=== PATIENT | female | born 1990 | race Caucasian/White ===

== ENCOUNTER 2017-07-27 18:06 | Emergency (ER) | payer BC ==
[2017-07-27] MEDS: NS 0.9% 1000 ML* 2,000 ML IV ONE ×2 (19:19→19:21)
[2017-07-27 19:32] LABS: ABS Basophils 0 10^3/ul (0-0.2); ABS Eosinophils 0 10^3/ul (0-0.6); ABS Lymphocytes 1.2 10^3/ul (1.0-4.8); ABS Monocytes 0.5 10^3/ul (0-0.8); ABS Neutrophils 7.2 10^3/ul (1.5-7.7); ABS Nucleated RBC 0 10^3/ul; Eosinophil % 0 % (0-6); Hematocrit 35 % (35-47); Hemoglobin 11.8 g/dl (12.0-16.0); Lymphocyte % 13.4 % (25-47); Mean Corpuscular HGB Conc 34 g/dl (31-36); Mean Corpuscular Hemoglobin 30 pg (27-31); Mean Corpuscular Volume 87 fL (80-97); Mean Platelet Volume 9.2 um3 (7.4-10.4); Nucleated Red Blood Cells % 0; Platelet Count 179 10^3/ul (150-450); Red Blood Count 3.98 10^6/ul (4.0-5.4); Red Cell Distribution Width 14 % (10.5-15)
[2017-07-27 19:50] LABS: EGFR Non-African American 176.1 (>60)
[2017-07-27 20:03] LABS: Urine Appearance Clear; Urine Blood 1+ (Negative); Urine Color Straw; Urine Ketones Negative (Negative); Urine Protein Negative (Negative); Urine Specific Gravity 1.004 (1.010-1.030); Urine Urobilinogen Negative (Negative)
[2017-07-27] MEDS ORDERED: Magnesium Oxide TAB* 400 MG PO ONE (20:56)
[2017-07-27] MEDS ORDERED: Potassium Chlor TAB* 20 MEQ TAB.ER PO ONE (20:56)
[2017-07-27 21:44] VITALS: BP 108/79
--- NOTE | 2017-07-29 21:27 | ED ---
Michael Chávez Angela, scribed for Terrance Ortez MD on 07/27/17 at 1827 . GI/ HPI - HPI Summary HPI Summary: This pt is a 27 y/o female, currently 22 weeks , presenting to [facility] c/o nausea, vomiting, and diarrhea for the past few days. Pt additionally reports abdominal cramping. She is unsure if she had blood in her stool. Pt notes she is unable to keep anything down and feels dehydrated. Denies vaginal bleeding, vaginal discharge, fever. Pt states she is able to feel movements. - History of Current Complaint Chief Complaint: EDGeneral Stated Complaint: VOMITING/DIARRHEA Hx Obtained From: Patient Hx Last Menstrual Period: may 07 Onset/Duration: Started Days Ago, Still Present Timing: Lasting Days Severity: Moderate Pain Intensity: 3 Location of Pain: Diffuse Associated Signs and Symptoms: Positive: Nausea, Vomiting, Diarrhea, Abdominal Pain. Negative: Fever Additional Signs & Symptoms: Positive: - 2, Para - 1. Negative: Vaginal Bleeding, Vaginal Discharge Aggravating Factor(s): Nothing Alleviating Factor(s): Nothing - Allergy/Home Medications Allergies/Adverse Reactions: Allergies Allergy/AdvReac Type Severity Reaction Status Date / Time amoxicillin Allergy Hives Verified 07/27/17 18:16 ampicillin Allergy Hives Verified 07/27/17 18:16 lactose Allergy Diarrhea Verified 07/27/17 18:16 Sulfa (Sulfonamide Allergy Hives Verified 07/27/17 18:16 Antibiotics) Home Medications: Home Medications Vitamin TAB* 1 tab PO DAILY 07/27/17 [History Confirmed 07/27/17] PMH/Surg Hx/FS Hx/Imm Hx Endocrine/Hematology History: Reports: Hx Thyroid Disease - Hashimotos's Denies: Hx Diabetes Cardiovascular History: Denies: Hx Hypercholesterolemia, Hx Hypertension, Hx Pacemaker/ICD, Hx Peripheral Vascular Disease GI History: Reports: Hx Irritable Bowel, Other GI Disorders - LACTOSE INTOLERANT History: Reports: Other Problems/Disorders - intersitial cystitis Musculoskeletal History: Denies: Hx Arthritis, Hx Rheumatoid Arthritis, Hx Osteoporosis Sensory History: Denies: Hx Cataracts, Hx Contacts or Glasses, Hx Glaucoma Opthamlomology History: Denies: Hx Cataracts, Hx Contacts or Glasses, Hx Glaucoma Neurological History: Denies: Hx Headaches, Hx Seizures, Hx Transient Ischemic Attacks (TIA) Psychiatric History: Reports: Hx Anxiety, Hx Depression Denies: Hx Panic Disorder - Surgical History Surgery Procedure, Year, and Place: tubes in ears. adenoids removal. bladder expansion. laproscopy Hx Anesthesia Reactions: No Infectious Disease History: No Infectious Disease History: Reports: Hx Shingles Denies: Hx Clostridium Difficile, Hx Hepatitis, Hx Human Immunodeficiency Virus (HIV), Hx of Known/Suspected MRSA, Hx Tuberculosis, Hx Known/Suspected VRE , Hx Known/Suspected VRSA, History Other Infectious Disease, Traveled Outside the [place] in Last 30 Days - Family History Known Family History: Positive: Respiratory Disease - Father: asthma Family History: Mother: MS, thyroid disease. - Social History Alcohol Use: None Substance Use Type: Reports: None Smoking Status (MU): Never Smoked Tobacco Review of Systems Negative: Fever Eyes: Negative ENT: Negative Positive: Abdominal Pain, Vomiting, Diarrhea, Nausea Negative: discharge, other - vaginal bleeding Musculoskeletal: Negative Skin: Negative Neurological: Negative All Other Systems Reviewed And Are Negative: Yes Physical Exam - Summary Physical Exam Summary: VITAL SIGNS: Reviewed. GENERAL: Patient is a well-developed and nourished female who is lying comfortable in the stretcher. Patient is not in any acute respiratory distress. HEAD AND FACE: No signs of trauma. No ecchymosis, hematomas or skull depressions. No sinus tenderness. EYES: PERRLA, EOMI x 2, No injected conjunctiva, no nystagmus. EARS: Hearing grossly intact. Ear canals and tympanic membranes are within normal limits. MOUTH: Oropharynx within normal limits. NECK: Supple, trachea is midline, no adenopathy, no JVD, no carotid bruit, no c- spine tenderness, neck with full ROM. CHEST: Symmetric, no tenderness at palpation LUNGS: Clear to auscultation bilaterally. No wheezing or crackles. CVS: Regular rate and rhythm, S1 and S2 present, no murmurs or gallops appreciated. ABDOMEN: Soft, non-tender. No signs of distention. No rebound no guarding, and no masses palpated. Bowel sounds are normal. EXTREMITIES: FROM in all major joints, no edema, no cyanosis or clubbing. NEURO: Alert and oriented x 3. No acute neurological deficits. Speech is normal and follows commands. SKIN: Dry and warm Triage Information Reviewed: Yes Vital Signs On Initial Exam: Initial Vitals Temp Pulse Resp BP Pulse Ox 98 F 100 16 96/76 99 07/27/17 18:13 07/27/17 18:13 07/27/17 18:13 07/27/17 18:13 07/27/17 18:13 Vital Signs Reviewed: Yes Diagnostics - Vital Signs Vital Signs Temp Pulse Resp BP Pulse Ox 07/27/17 18:13 98 F 100 16 96/76 99 - Laboratory Lab Results: Lab Results 07/27/17 07/27/17 07/27/17 Range/Units 19:23 19:23 19:51 WBC 9.0 (3.5-10.8) 10^3/ul RBC 3.98 L (4.0-5.4) 10^6/ul Hgb 11.8 L (12.0-16.0) g/dl Hct 35 (35-47) % MCV 87 (80-97) fL MCH 30 (27-31) pg MCHC 34 (31-36) g/dl RDW 14 (10.5-15) % Plt Count 179 (150-450) 10^3/ul MPV 9.2 (7.4-10.4) um3 Neut % (Auto) 80.0 (38-83) % Lymph % (Auto) 13.4 L (25-47) % Slope % (Auto) 6.1 (0-7) % Eos % (Auto) 0 (0-6) % Baso % (Auto) 0.5 (0-2) % Absolute Neuts (auto) 7.2 (1.5-7.7) 10^3/ul Absolute Lymphs (auto) 1.2 (1.0-4.8) 10^3/ul Absolute Monos (auto) 0.5 (0-0.8) 10^3/ul Absolute Eos (auto) 0 (0-0.6) 10^3/ul Absolute Basos (auto) 0 (0-0.2) 10^3/ul Absolute Nucleated RBC 0 10^3/ul Nucleated RBC % 0 Sodium 134 L (139-145) mmol/L Potassium 3.1 L (3.5-5.0) mmol/L Chloride 104 (101-111) mmol/L Carbon Dioxide 22 (22-32) mmol/L Anion Gap 8 (2-11) mmol/L BUN 2 L (6-24) mg/dL Creatinine 0.43 L (0.51-0.95) mg/dL Est GFR ( Amer) 226.5 (>60) Est GFR (Non-Af Amer) 176.1 (>60) BUN/Creatinine Ratio 4.7 L (8-20) Glucose 87 (70-100) mg/dL Calcium 8.3 L (8.6-10.3) mg/dL Magnesium 1.8 L (1.9-2.7) mg/dL Total Bilirubin 0.30 (0.2-1.0) mg/dL AST 14 (13-39) U/L ALT 9 (7-52) U/L Alkaline Phosphatase 80 (34-104) U/L C-Reactive Protein 40.17 H (< 5.00) mg/L Total Protein 6.7 (6.4-8.9) g/dL Albumin 3.3 (3.2-5.2) g/dL Globulin 3.4 (2-4) g/dL Albumin/Globulin Ratio 1.0 (1-3) Lipase 10 L (11.0-82.0) U/L Urine Color Straw Urine Appearance Clear Urine pH 6.0 (5-9) Ur Specific [place] 1.004 L (1.010-1.030) Urine Protein Negative (Negative) Urine Ketones Negative (Negative) Urine Blood 1+ A (Negative) Urine Nitrate Negative (Negative) Urine Bilirubin Negative (Negative) Urine Urobilinogen Negative (Negative) Ur Leukocyte Esterase Negative (Negative) Urine WBC (Auto) Trace(0-5/hpf) (Absent) Urine RBC (Auto) 1+(3-5/hpf) A (Absent) Ur Squamous Epith Cells Present A (Absent) Urine Bacteria 3+ A (Absent) Urine Glucose Negative (Negative) Result Diagrams: 07/27/17 19:23 07/27/17 19:23 Lab Statement: Any lab studies that have been ordered have been reviewed, and results considered in the medical decision making process. Re-Evaluation - Re-Evaluation First Eval Re-Evaluation Time: 21:05 Comment: I reviewed the lab results with the pt. She will be discharged home. GIGU Course/Dx - Course Assessment/Plan: This patient is a 27-year-old female who is 22 weeks presents to the emergency room with a chief complaint of having diarrhea. The patient reports that she is being having diarrhea for the last 5 days, she reports that his of watery diarrhea with no blood or mucus. She declines any vaginal discharge or bleeding. Blood test results without any significant abnormality except for potassium level at 3.1 and magnesium level of 1.8. In the ED course the patient was hydrated with IV fluids approximately 2 L of NS, she was given potassium and magnesium by mouth. Urinalysis negative for UTI. He seems to be contaminated. Therefore we will send for urine cultures. Patient is feeling better. Patient has no further episodes of diarrhea. Therefore unable to obtain a stool culture. I discussed all the findings and test results with the patient. Patient was instructed to return to the emergency room immediately if any of the symptoms return or worsens. Plan of care was discussed with the patient and understands and agrees. All questions were answered at patient satisfaction. There were no further complaints or concerns. Lung exam before discharge: CTA B/L. Good air exchange. No wheezing or crackles heard. CVS: S1 and S2 present. No murmurs appreciated. Patient is alert and oriented x 3. Patient is hemodynamically stable. Patient will be discharged home with follow up PCP in the next 2-3 days - Diagnoses Provider Diagnoses: Diarrhea Discharge - Sign-Out/Discharge Documenting (check all that apply): Discharge/Admit/Transfer - Discharge - Discharge Plan Condition: Stable Disposition: HOME Patient Education Materials: Acute Diarrhea (ED) Referrals: Michaela Huynh MD [Primary Care Provider] - Additional Instructions: Please follow up with your OBGyn and primary care provider. RETURN TO THE ED FOR ANY NEW OR WORSENING SYMPTOMS. The documentation as recorded by the Michael roth Angela accurately reflects the service I personally performed and the decisions made by me, Terrance Ortez MD.
== END 2017-07-27 21:41 | disposition home or self-care (01) ==
LOC: ED 18:06
DX: O26.892 Other specified pregnancy related conditions, second trimester (principal); R19.7 Diarrhea, unspecified; Z3A.22 22 weeks gestation of pregnancy; Z88.3 Allergy status to other anti-infective agents; Z88.2 Allergy status to sulfonamides
CPT/HCPCS: 36415; 80053; 81003; 81015; 83690; 83735; 85025; 86140; 87086; 96360; 96361; 99284; A9270-GY

== ENCOUNTER 2017-12-07 11:03 | Inpatient (IN) | payer BC ==
[2017-12-07 12:29] LABS: Hematocrit 35 % (35-47); Hemoglobin 11.4 g/dl (12.0-16.0); Mean Corpuscular HGB Conc 33 g/dl (31-36); Mean Corpuscular Hemoglobin 27 pg (27-31); Mean Corpuscular Volume 81 fL (80-97); Mean Platelet Volume 9.6 um3 (7.4-10.4); Platelet Count 193 10^3/ul (150-450); Red Blood Count 4.28 10^6/ul (4.00-5.40); Red Cell Distribution Width 15 % (10.5-15); White Blood Count 9.3 10^3/ul (3.5-10.8)
--- NOTE | 2017-12-07 12:32 | HP ---
General Information - Reason for Visit at 40 6/7 weeks EGA, postdates. - General Information Maternal Age: 27 Grav: 2 Para: 1 SAB: 0 IEA: 0 Estimated Due Date: 12/01/17 Determined By: Early Ultrasound Gestational Age in Weeks/Days: 40 6/7 Maternal Blood Type and Rh: A Positive - Results this Serology/RPR Result: Non-Reactive Rubella Result: Immune HBsAg Result: Negative HIV Result: Negative GBS Culture Result: Negative Past Medical History Delivery History: See Records Pertinent Past Medical History: See Records Past Medical History Comment: Interstitial cystitis Fibromyalgia Preethi's thyroiditis Depression/Anxiety Endometriosis Pertinent Past Surgical History: See Records Past Surgical History Comment: 2012 Diagnostic laparoscopy 2011 bladder distension Pertinent Family History: See Records - Thyroid disease, High blood pressure, Diabetes. - Antepartal Records Antepartal Records: Reviewed, Uncomplicated Review of Systems Constitutional: Comfortable CV Complaint: No Respiratory: Shortness of Breath: No Gastrointestinal: No Nausea/Vomiting, Normal Bowel Movement Genitourinary: No Dysuria, No Bleeding, No Leaking Fluid Musculoskeletal: No Complaint, No Epigastric Pain Neurological: No Headache, No Visual Changes Movement: Normal Exam Allergies/Adverse Reactions: Allergies amoxicillin Allergy (Verified 07/27/17 18:16) Hives ampicillin Allergy (Verified 07/27/17 18:16) Hives lactose Allergy (Verified 07/27/17 18:16) Diarrhea Sulfa (Sulfonamide Antibiotics) Allergy (Verified 07/27/17 18:16) Hives Temp 97.7 BP 106/69 Pulse 90-100's RR 18 POx 87% RA - Measurements Height: 5 ft 2 in Weight: 189 lb Weight in lbs: [phone] Body Mass Index (BMI): 34.5 Pre- Weight: 135 lb Weight Gained This : 54 lbs and 0 ozs - Exam Breast: Breast Exam Deferred CVA: No CVA Tenderness Extremities: No Edema Heart: Normal Rhythm/Heart Sounds HEENT: No Significant Findings Lungs: Clear Bilaterally Rectal: Rectal Exam Deferred Reflexes: DTR 2+ Thyroid: No Thyromegaly - Abdominal Exam Abdomen Exam: Non-Tender, Fundal Height Consistent with Dates - Ultrasound/Biophysical Profile Ultrasound Status: Not Done Biophysical Profile: Normal Reactive NST Targeted Exam Findings See L&D Outpatient Visit Provider Note for Findings: N/A Cervical Exam: 3cm Effacement: 80% Station: -1 Presenting Part: Vertex Membrane Status: Intact EFM Findings - External Monitor Findings Baseline Heart Rate: 140 External Monitor Findings: Accelerations Present Contractions: Irregular, Mild Assessment/Plan - Assessment at 40 6/7 weeks with irregular contractions. - Obstetrical Risk Factors Obstetrical Risk Factors: Post-Dates - Plan Plan: Induction, IV Hydration - Date/Time of Admission Date of Admission: 12/07/17 Time of Admission: 12:30
[2017-12-07] MEDS ORDERED: Oxytocin in LR* 20 UNITS/1,000 ML BAG IVPB SCH (13:00)
[2017-12-07] MEDS ORDERED: OBEPIDURAL* 250 ML EPIDURAL ONE (14:38)
[2017-12-07] MEDS ORDERED: fentaNYL* 50 MCG/ML 2 ML VIAL (100 MCG VIAL) ONE (14:38)
[2017-12-07] MEDS ORDERED: Lidocaine 2% EPI 1:200000 MPF*10-20 ML VIAL ONE (15:17)
[2017-12-07] MEDS ORDERED: Famotidine TAB* 20 MG PO PRN (15:34)
[2017-12-07] MEDS ORDERED: Sodium Citrate/Citric Acid* 15 ML UDC PO PRN (15:34)
[2017-12-07] MEDS ORDERED: Phenylephrine IV* 40 MCG/ML 10 ML SYRINGE IV PUSH PRN ×2 (15:34)
[2017-12-07] MEDS ORDERED: OBEPIDURAL* 250 ML EPIDURAL SCH (16:00)
[2017-12-07] MEDS ORDERED: Ropivacaine (OR use only) 2 MG/ML 10 ML ONE (20:04)
[2017-12-07] MEDS ORDERED: Glycerin ADULT SUPP PR PRN (20:34)
[2017-12-07] MEDS ORDERED: Witch Hazel PAD* JAR TOPICAL PRN (20:34)
[2017-12-07] MEDS ORDERED: Dibucaine 1% 28.35 GM TUBE PR PRN (20:34)
--- NOTE | 2017-12-07 20:43 | PROCNOTE ---
[facility]: Delivery Note - Nursery Level of Nursery: Regular/Bedside - Perineum Perineal Injury: Perineal Laceration, 2nd Degree Perineal Repair: By Delivering Practioner - by Dr. George Vela, local anesthetic 5cc 1% lidocaine used. Repaired with 3- polysorb suture. - Events Delivery Events of Note: Pitocin During Labor, Shoulder Dystocia - Relieved with Chantel and suprapubic pressure, IUPC Use Delivery Events of Note Comment: Spontaneous vaginal delivery. EBL 200cc - Additional Delivery Notes Additional Delivery Notes: [place] Sex-Female Weight 8Lbs, 4 Oz Apgars 9/9
[2017-12-07] MEDS ORDERED: Simethicone TAB* 80 MG TAB.CHEW PO SCH (21:00)
[2017-12-07] MEDS ORDERED: Ammonia Inhalant* 1 EA AMP ONE (21:38)
[2017-12-07] MEDS: Ibuprofen TAB* 600 MG PO PRN (22:02)
[2017-12-07] MEDS: Docusate CAP* 100 MG PO SCH (22:35)
[2017-12-08] MEDS: Acetaminophen TAB* 325 MG PO PRN ×4 (02:08→20:14)
[2017-12-08] MEDS: Ibuprofen TAB* 600 MG PO PRN ×4 (04:19→23:31)
[2017-12-08 07:38] LABS: ABS Basophils 0 10^3/ul (0-0.2); ABS Eosinophils 0.1 10^3/ul (0-0.6); ABS Lymphocytes 2.1 10^3/ul (1.0-4.8); ABS Monocytes 0.9 10^3/ul (0-0.8); ABS Nucleated RBC 0 10^3/ul; Eosinophil % 0.5 % (0-6); Hematocrit 28 % (35-47); Hemoglobin 9.3 g/dl (12.0-16.0); Lymphocyte % 19.2 % (25-47); Mean Corpuscular HGB Conc 33 g/dl (31-36); Mean Corpuscular Hemoglobin 27 pg (27-31); Mean Corpuscular Volume 81 fL (80-97); Mean Platelet Volume 9.3 um3 (7.4-10.4); Nucleated Red Blood Cells % 0; Platelet Count 173 10^3/ul (150-450); Red Blood Count 3.49 10^6/ul (4.00-5.40); Red Cell Distribution Width 15 % (10.5-15); White Blood Count 11.1 10^3/ul (3.5-10.8)
[2017-12-08] MEDS: Docusate CAP* 100 MG PO SCH ×3 (08:14→20:16)
[2017-12-08] MEDS: Ferrous Gluconate TAB* 324 MG TAB PO SCH ×2 (08:14→20:15)
[2017-12-09] MEDS: Ibuprofen TAB* 600 MG PO PRN (05:26)
[2017-12-09] MEDS: Ferrous Gluconate TAB* 324 MG TAB PO SCH (08:10)
[2017-12-09] MEDS: Docusate CAP* 100 MG PO SCH (08:10)
[2017-12-09 08:39] VITALS: BP 113/59
== END 2017-12-09 11:58 | disposition home or self-care (01) | DRG 560 ==
LOC: MCHOBOUT 11:03 → MCHOB 11:52
PROVIDERS: ADMIT Obstetrics & Gynecology; ATTEND Obstetrics & Gynecology
PROC: 10907ZC Drainage of Amniotic Fluid, Therapeutic from Products of Conception, Via Natural or Artificial Opening (ICD-10-PCS; principal; 2017-12-07)
PROC: 3E033VJ Introduction of Other Hormone into Peripheral Vein, Percutaneous Approach (ICD-10-PCS; 2017-12-07)
PROC: 4A1HXCZ Monitoring of Products of Conception, Cardiac Rate, External Approach (ICD-10-PCS; 2017-12-07)
PROC: 10E0XZZ Delivery of Products of Conception, External Approach (ICD-10-PCS; 2017-12-07)
PROC: 0KQM0ZZ Repair Perineum Muscle, Open Approach (ICD-10-PCS; 2017-12-07)
PROC: 10H07YZ Insertion of Other Device into Products of Conception, Via Natural or Artificial Opening (ICD-10-PCS; 2017-12-07)
DX: O48.0 Post-term pregnancy (principal); Z37.0 Single live birth; O66.0 Obstructed labor due to shoulder dystocia; Z3A.40 40 weeks gestation of pregnancy; O70.1 Second degree perineal laceration during delivery; O90.81 Anemia of the puerperium; Z88.0 Allergy status to penicillin; Z88.2 Allergy status to sulfonamides
CPT/HCPCS: 36415; 85025; 85027; 86850; 86900; 86901; A9270-GY; J2795; J3010

== ENCOUNTER 2018-05-25 20:43 | Emergency (ER) | payer BC, OTHER ==
[2018-05-25 21:01] VITALS: BP 136/88
[2018-05-25] MEDS ORDERED: DOXYcycline CAP(*) 100 MG PO ONE (21:42)
--- NOTE | 2018-05-25 21:49 | UC ---
Skin Complaint HPI - HPI Summary HPI Summary: 28-year-old female presents with complaints of tenderness, redness, and swelling at the site of a right earlobe piercing that she received one week ago. States started 2-3 days ago. Tonight became more sore and inflamed so she removed the piercing and presented for evaluation. Denies fever, chills, or purulent drainage. - History of Current Complaint Chief Complaint: UCSkin Time Seen by Provider: 05/25/18 21:35 Stated Complaint: PIERCING COMPLAINT Hx Obtained From: Patient Hx Last Menstrual Period: may 07 Pain Intensity: 2 - Allergy/Home Medications Allergies/Adverse Reactions: Allergies Allergy/AdvReac Type Severity Reaction Status Date / Time amoxicillin Allergy Hives Verified 05/25/18 21:01 ampicillin Allergy Hives Verified 05/25/18 21:01 lactose Allergy Diarrhea Verified 05/25/18 21:01 Sulfa (Sulfonamide Allergy Hives Verified 05/25/18 21:01 Antibiotics) PMH/Surg Hx/FS Hx/Imm Hx Previously Healthy: Yes - Denies significant PMH - Surgical History Surgical History: Yes Surgery Procedure, Year, and Place: tubes in ears. adenoids removal. bladder expansion. laproscopy - Family History Known Family History: Positive: Respiratory Disease - Father: asthma Family History: Mother: MS, thyroid disease. - Social History Occupation: Employed Part-time Lives: With Family Alcohol Use: Rare Substance Use Type: None Smoking Status (MU): Never Smoked Tobacco - Immunization History Most Recent Influenza Vaccination: 11/24/17 Most Recent Tetanus Shot: 12/23/15 Most Recent Pneumonia Vaccination: never Review of Systems All Other Systems Reviewed And Are Negative: Yes Constitutional: Negative: Fever, Chills Skin: Positive: Other - See HPI ENT: Positive: Negative Respiratory: Positive: Negative Cardiovascular: Positive: Negative Gastrointestinal: Positive: Negative Musculoskeletal: Positive: Negative Neurological: Positive: Negative Is Patient Immunocompromised?: No Physical Exam - Summary Physical Exam Summary: GENERAL APPEARANCE: Well developed, well nourished, alert and cooperative, and appears to be in no acute distress. EARS: External auditory canals and tympanic membranes clear, hearing grossly intact. NECK: Neck supple, non-tender without lymphadenopathy. CARDIAC: Normal S1 and S2. No S3, S4 or murmurs. Rhythm is regular. There is no peripheral edema, cyanosis or pallor. Extremities are warm and well perfused. Capillary refill is less than 2 seconds. Peripheral pulses intact. LUNGS: Clear to auscultation without rales, rhonchi, wheezing or diminished breath sounds. ABDOMEN: Positive bowel sounds. Soft, nondistended, nontender. No guarding or rebound. No masses or hepatosplenomegally. MUSKULOSKELETAL: ROM intact to all extremities. No joint erythema or tenderness. Normal muscular development. Normal gait. SKIN: Erythema, edema, and tenderness of the right upper earlobe (see diagram). No induration, fluctuance, or drainage noted. Triage Information Reviewed: Yes Vital Signs: Initial Vital Signs Temp 98.0 F 05/25/18 20:57 Pulse 85 05/25/18 20:57 Resp 18 05/25/18 20:57 BP 136/88 05/25/18 20:57 Pulse Ox 98 05/25/18 20:57 Vital Signs Reviewed: Yes Images Head: 1 - Erythema, mild edema, and tenderness. No induration, fluctuance, or drainage noted. Course/Dx - Course Course Of Treatment: 28-year-old female presents with complaints of tenderness, redness, and swelling at the site of a right earlobe piercing that she received one week ago. States started 2-3 days ago. Tonight became more sore and inflamed so she removed the piercing and presented for evaluation. Denies fever, chills, or purulent drainage. Afebrile. Vital signs stable. Exam was remarkable for erythema, edema, and tenderness of the right upper earlobe. No induration, fluctuance, or drainage was noted. Will treat for an infected right ear piercing. Patient reports allergies to amoxicillin and sulfa. We'll start her on doxycycline 100 mg twice a day 7 days. First dose was given in the clinic. She is to follow-up with her primary care provider in 3-5 days if symptoms do not improve. Wound care, anticipatory guidance, and warning symptoms are reviewed with the patient. Verbalizes understanding and agrees with plan of care. - Differential Diagnoses - Skin Complaint Differential Diagnoses: Abscess, Cellulitis, Local Allergic Reaction, MRSA - Diagnoses Provider Diagnosis: Infected pierced ear Discharge - Sign-Out/Discharge Documenting (check all that apply): Patient Departure All imaging exams completed and their final reports reviewed: No Studies - Discharge Plan Condition: Stable Disposition: HOME Prescriptions: Doxycycline Hyclate 100 mg PO BID #14 tablet Patient Education Materials: Cellulitis (ED) Referrals: Michaela Huynh MD [Primary Care Provider] - 3 Days (Follow up in 3-5 days if no improvement in symptoms.) Additional Instructions: You have a localized infection of your piercing to the right ear lobe. We will start you on an antibiotic to treat the infection. Take doxycycline 100 mg 1 tablet twice a day for 7 days. We gave you the first dose in the clinic. Do NOT put the piercing back in your ear. Keep the wounds clean with a gentle soap and water. You should clean this at least twice daily. You may apply a small amount or antibiotic ointment to the wounds. Take acetaminophen (Tylenol) or iburpofen (Advil, Motrin) according to directions as needed for pain. Follow up with you primary care provider in 3-5 days if no improvement in symptoms. Seek immediate medical attention in the emergency room if you develop fever greater than 100.5 F, have severe pain that is not managed with pain medication , increased redness or swelling of the ear lobe, or any worsening of symptoms. - Billing Disposition and Condition Condition: STABLE Disposition: Home
== END 2018-05-25 21:50 | disposition home or self-care (01) ==
LOC: UCEAST 20:43
DX: H60.391 Other infective otitis externa, right ear (principal); Z88.0 Allergy status to penicillin; Z88.2 Allergy status to sulfonamides
CPT/HCPCS: 99202; A9270-GY; G0463

== ENCOUNTER 2019-04-02 14:35 | Emergency (ER) | payer BC, OTHER ==
[2019-04-02 14:47] VITALS: BP 112/76
--- NOTE | 2019-04-02 15:11 | UC ---
Ear Complaint HPI - HPI Summary HPI Summary: 29 y/o female presents to the urgent care c/o left ear pain w/ nasal congestion and clear nasal discharge for the past week. Sinus congestion seemed to resolved, but she just returned from [place] and in the plane her left ear pain was wore. Pain today is 4/10 now and associated w/ decrease hearing and pressure. She has taken ibuprofen PO to alleviate symptoms. Pt w/ Hx of recurrent ear infections. Pt states subjective low grade fever for 2 days. Pt denies dizziness, CARTER, SOB, cough, chest pain, abdominal pain, N/V/d, no ear drainage - History of Current Complaint Chief Complaint: UCEar Stated Complaint: EAR COMPLAINT Time Seen by Provider: 04/02/19 15:02 Hx Obtained From: Patient Hx Last Menstrual Period: now Onset/Duration: Gradual Onset, Lasting Weeks - 1 week, Still Present, Worse Since - yesterday Severity Initially: Mild Severity Currently: Moderate Pain Intensity: 4 Pain Scale Used: 0-10 Numeric Aggravating Factors: Other - touch ear Alleviating Factors: OTC Meds Associated Signs/Symptoms: Positive: Hearing Loss, URI Symptoms. Negative: Discharge, Swelling @ - Allergies/Home Medications Allergies/Adverse Reactions: Allergies Allergy/AdvReac Type Severity Reaction Status Date / Time amoxicillin Allergy Hives Verified 04/02/19 14:47 ampicillin Allergy Hives Verified 04/02/19 14:47 lactose Allergy Diarrhea Verified 04/02/19 14:47 Sulfa (Sulfonamide Allergy Hives Verified 04/02/19 14:47 Antibiotics) PMH/Surg Hx/FS Hx/Imm Hx Previously Healthy: Yes Endocrine History: Hypothyroidism - fibromyalgia, Other GI/ History: insterstitial cystitis - Surgical History Surgical History: Yes Surgery Procedure, Year, and Place: tubes in ears. adenoids removal. bladder expansion. laproscopy - Family History Known Family History: Positive: Hypertension, Diabetes, Respiratory Disease - Father: asthma Family History: Mother: MS, thyroid disease. - Social History Occupation: Employed Full-time Lives: With Family Alcohol Use: Rare Substance Use Type: None Smoking Status (MU): Never Smoked Tobacco - Immunization History Most Recent Influenza Vaccination: 11/24/17 Most Recent Tetanus Shot: 12/23/15 Most Recent Pneumonia Vaccination: never Review of Systems All Other Systems Reviewed And Are Negative: Yes Constitutional: Positive: Fever - subjective low grade fever at home for 2 days Skin: Positive: Negative Eyes: Positive: Negative ENT: Positive: Ear Ache - left ear pain, Nasal Discharge - clear, Sinus Congestion Respiratory: Positive: Negative Cardiovascular: Positive: Negative Gastrointestinal: Positive: Negative Genitourinary: Positive: Negative Motor: Positive: Negative Neurovascular: Positive: Negative Musculoskeletal: Positive: Negative Neurological: Positive: Negative Psychological: Positive: Negative Is Patient Immunocompromised?: No Physical Exam - Summary Physical Exam Summary: Vital signs: reviewed General: well developed, well nourished female sitting in the examining table w/ o any apparent distress Skin: Duncan, warm and dry, no evidence of atopic dermatitis, psoriasis, seborrhea. HEENT: -Head: atraumatic, non tender; no scalp dermatitis. -Eyes: sclera and conjunctiva clear, PERRLA, EOMI -Ears: no pre- or postauricular lymphadenopathy or erythema; LF external ear canal impacted w/ cerumen unable to visualize LF TM. Rt external ear canal clear and RT TM WNL. TMs normal w/out bulging or retraction. Good light reflex. No fluid level, vesicles, or bullae. No perforation. -Nose/Face: erythematous and edematous nasal mucosa with clear rhinorrhea, no frontal or maxillary sinus tender to palpation. -Mouth/Throat: Mucous membrane moist, posterior pharynx clear, no erythema or exudates. Neck: supple, FROM, nontender, no lymphadenopathy, no meningismus. Chest: Clear to auscultation, normal breath sounds Abd: soft, Bowel sounds active, Nontender. Back: no spinal or CVAT Neuro: A&O x4, GCS 15, no focal neuro deficits, normal behavior for age. Triage Information Reviewed: Yes Vital Signs: Initial Vital Signs Temp 98.4 F 04/02/19 14:43 Pulse 81 04/02/19 14:43 Resp 18 04/02/19 14:43 BP 112/76 04/02/19 14:43 Pulse Ox 100 04/02/19 14:43 Ear Complaint Course/Dx - Course Course Of Treatment: 29 y/o female presents to the urgent care c/o left ear pain w/ nasal congestion and clear nasal discharge for the past week. Sinus congestion seemed to resolved, but she just returned from [place] and in the plane her left ear pain was wore. Pain today is 4/10 now and associated w/ decrease hearing and pressure. She has taken ibuprofen PO to alleviate symptoms. Pt w/ Hx of recurrent ear infections. Pt states subjective low grade fever for 2 days. Pt denies dizziness, CARTER, SOB, cough, chest pain, abdominal pain, N/V/d, no ear drainage. Hx obtained. Pt w/ left external ear canal impacted w/ cerumen and left anterior cervical and preauricular lymphadenopathy on examination. Left ear irrigation ordered. Irrigation performed by Nurse. Pt tolerated well procedure w/o any adverse effect. However mild cerumen w/ yellowish draiange still presents. I tried to remove it w/ ear speculum, but Pt didn't tolerated due to pain. Left external ear canal w/ erythema and yellowish purulent discharge, LF TM injected w/ erythema, no light reflex, no perforation. Pt will be Tx for Otitis externa and Media. Pt allergic to PCN and Augmentin PO. Pt Rx Doxicycline PO and Cortisporin otic drops. Advised to continue w/ Ibuprofen PO for alleviate otalgia. Pt advised if not improvement of symptoms in 2-3 days to f/u w/ her PCP or RNT DR Ng for further evaluation and treatment. Pt understood and agreed w/ plan of care. - Differential Dx/Diagnosis Differential Diagnosis/HQI/PQRI: Cerumen Impaction, Otitis Externa, Otitis Media , Perforated TM, URI Provider Diagnosis: Left ear impacted cerumen, Left otitis externa, Left otitis media Discharge ED - Sign-Out/Discharge Documenting (check all that apply): Patient Departure - D/C home All imaging exams completed and their final reports reviewed: No Studies - Discharge Plan Condition: Stable Disposition: HOME Prescriptions: DOXYcycline CAP(*) [DOXYcycline 100MG CAP(*)] 100 mg PO BID #14 cap Neomyc/Polym/HC 1% OTIC SUSP* [Cortisporin Otic Susp 1%*] 4 drop LEFT EAR TID # 1 btl Patient Education Materials: Ear Infection (ED) Referrals: Michaela Huynh MD [Primary Care Provider] - 3 Days Additional Instructions: 1-Please apply Cotisporin otic antibiotic on your LF ear as directed. 2- Please take the full course of the antibiotic to avoid resistance.Take yogurts w/ probiotics or Culturelle to protect your GI system 3-Please take ibuprofen or Tylenol PO q6-8hrs prn as instructed after meals to alleviate pain and swelling. Increase fluid intake, eat well, rest and avoid strenuous exercise 3-If symptoms do not improve or worsen please f/u with your PCP or ENT Dr Ng in 3 days for further evaluation and treatment. - Billing Disposition and Condition Condition: STABLE Disposition: Home
== END 2019-04-02 16:25 | disposition home or self-care (01) ==
LOC: UCEAST 14:35
DX: H66.92 Otitis media, unspecified, left ear (principal); H61.22 Impacted cerumen, left ear; H60.92 Unspecified otitis externa, left ear; Z88.0 Allergy status to penicillin; Z88.2 Allergy status to sulfonamides; Z91.011 Allergy to milk products
CPT/HCPCS: 99213; G0463

== ENCOUNTER 2020-01-15 03:26 | Inpatient (IN) ==
[2020-01-15] MEDS ORDERED: Glycerin ADULT 2.4 gm SUPP PR PRN (05:14)
[2020-01-15] MEDS ORDERED: Witch Hazel PAD JAR TOPICAL PRN (05:14)
[2020-01-15] MEDS ORDERED: Dibucaine 1% OINT 28.35 GM TUBE PR PRN (05:14)
[2020-01-15 06:32] LABS: Urine Benzodiazepine Screen None Detected (None Detect); Urine Cannabinoids Screen None Detected (None Detect); Urine Opiates Screen None Detected (None Detect)
[2020-01-15] MEDS ORDERED: Lidocaine 1% VIAL 10 MG/ML VIAL ONE (06:48)
[2020-01-16 06:39] LABS: ABS Eosinophils 0.1 10^3/ul (0-0.6); ABS Lymphocytes 2.9 10^3/ul (1.0-4.8); ABS Monocytes 0.6 10^3/ul (0-0.8); ABS Neutrophils 5.6 10^3/ul (1.5-7.7); Eosinophil % 1.3 %; Hematocrit 28 % (35-47); Hemoglobin 9.5 g/dL (12.0-16.0); Lymphocyte % 31.2 %; Mean Corpuscular HGB Conc 34 g/dL (31-36); Mean Corpuscular Hemoglobin 29 pg (27-31); Mean Corpuscular Volume 86 fL (80-97); Mean Platelet Volume 9.7 fL (7.4-10.4); Platelet Count 150 10^3/uL (150-450); Red Blood Count 3.24 10^6 /uL (3.70-4.87); Red Cell Distribution Width 15 % (10-15); White Blood Count 9.3 10^3/uL (3.5-10.8)
[2020-01-16 08:07] VITALS: BP 100/61
== END 2020-01-16 12:39 | disposition home or self-care (01) | DRG 560 ==
LOC: MCHOBOUT 03:26 → MCHOB 03:57
PROVIDERS: ADMIT Obstetrics & Gynecology; ATTEND Obstetrics & Gynecology